=== PATIENT | male | born 1970 | race Caucasian/White ===

== ENCOUNTER 2017-03-28 09:31 | Day surgery (SDC) | payer MEDICARE, OTHER ==
[~2017-03-28 09:31] MED LIST: LAMO150T; LAMO25TA; LORA2TAB7; OXYB10TA; PANT40TA3; QUET1TAB9 PO; QUET5TAB
[2017-03-28 09:59] VITALS: BP 129/91; PULSE 80; RESP 20; TEMP 99.2; O2SAT 94
[2017-03-28 12:00] VITALS: BP 129/91; PULSE 80; RESP 20; TEMP 99.2; O2SAT 94
--- NOTE | 2017-03-28 12:02 | PD.RAD ---
Post Procedure Progress Note Pre Procedure Diagnosis: (1) Communicating hydrocephalus Post Procedure Diagnosis: (1) Communicating hydrocephalus Procedure Date: Mar 28, 2017 Supervising Radiologist: Linus Barrera JR Proceduralist/Assist: Adelaida Viatl RT(R)(CV) Anesthesia: Other Plan of Activity Patient to Unit: [facility] Patient Condition: Good Additional Comments: Shuntogram shows patent shunt. Pooling of contrast in peritoneal component consistent with adhesions. Same appearance as 2015. No leak seen. See PACS Report for procedural detail/treatment Jr. Bruce,Linus De Jesus MD Mar 28, 2017 12:02
--- NOTE | 2017-03-28 16:32 | RADRPT ---
EXAM DATE/TIME: 03/28/2017 11:36 [facility] COMPARISON: SHUNTOGRAM, April 26, 2015, 14:32. SHUNT SERIES, April 26, 2015, 15:25. INDICATIONS : Hydrocephalus.Shunt failure. MEDICAL HISTORY : 1. Hydrocephalus SURGICAL HISTORY : 1. shunt placed and revision ENCOUNTER: Initial ACUITY: 2 days PAIN SCORE: 0/10 FLUORO TIME: 3.2 minutes IMAGE SERIES: 0 CONTRAST: 20 cc Omnipaque (iohexol) 300 PROCEDURE : 1. Fluoroscopically guided shuntogram. The risks, benefits and alternatives to the procedure were explained and verbal and written consent w as obtained. The site was prepped in sterile fashion. Full sterile technique was used, including ca p, mask, sterile gloves and gown and a large sterile sheet. Hand hygiene and 2% chlorhexidine and/or betadine/alcohol prep was utilized per protocol for cutaneous antisepsis. The skin and subcutaneous tissues were infiltrated with local anesthetic solution. With fluoroscopic guidance the previously placed shunt was injected with a 23 gauge butterfly needle and positive contrast was injected. Prior to the injection of contrast fluoroscopic images of the shunt show some progression in the calc ification of the current shunt. An old calcified ligated shunt is unchanged. The existing shunt shows no breakage in the catheter. The peritoneal component is in the same position as it was in 2015 cons istent with adhesion formation. Following injection of contrast images were performed. These show pat ency to the shunt. No extravasation to suggest a leak. Pooling of contrast adjacent to the tip of the catheter within the peritoneal cavity is similar to the prior study and consistent with adhesions. CONCLUSION: The appearance of the [employer] shunt is unchanged from 2015. The shunt is patent but adhesions have locked the catheter in the right lower quadrant as detailed above. No leakage of contrast to suggest a break in the catheter. Linus Barrera Jr., MD on March 28, 2017 at 16:23 Board Certified Radiologist. This report was verified electronically.
== END 2017-03-28 12:30 | disposition home or self-care (01) ==
LOC: HROP 09:31 → HRIP 09:34 → HROP 12:30
PROVIDERS: ATTEND Neurological Surgery
DX: T85.09XA Other mechanical complication of ventricular intracranial (communicating) shunt, initial encounter (principal); G91.0 Communicating hydrocephalus
CPT/HCPCS: 61070; 75809

== ENCOUNTER 2017-07-24 16:26 | Emergency (ER) | payer MEDICARE, OTHER ==
[~2017-07-24] VITALS: Ht 165.1 cm; Wt 68.2 kg
[~2017-07-24 16:26] MED LIST changes: +MACR100C2 PO; -QUET5TAB
[2017-07-24 17:27] VITALS: BP 111/73; PULSE 77; RESP 15; TEMP 98.2; O2SAT 98
[2017-07-24] MEDS ORDERED: CLON0.1T PO (18:15)
--- NOTE | 2017-07-24 18:15 | PD ---
HPI Chief Complaint: Psychiatric Symptoms Time Seen by Provider: 17:15 Travel History International Travel<30 days: No Contact w/Intl Traveler<30days: No Traveled to known affect area: No History of Present Illness HPI 47yo M with PMH of cerebral palsy with chronic right hemiparesis and congenital hydrocephalus s/p OUTSOLE LEVELER shunt was brought in under [place] Act by EVAC from his family medicine physician because of outbursts at the office and inability to take care of himself. Pt denies any fever, chest pain, sob, n/v, abdominal pain , new focal weakness or numbness. Denies any suicidal or homicidal ideations. Denies any visual or auditory hallucinations. PFSH Past Medical History Bipolar Disorder: Yes Cerebral Palsy: Yes Schizophrenia: Yes Tetanus Vaccination: Unknown Past Surgical History Surgical History: Unable to Obtain Neurologic Surgery: Yes (VISIBLE SCAR ON SKULL) Social History Alcohol Use: No Tobacco Use: No Substance Use: No Allergies-Medications (Allergen,Severity, Reaction): Coded Allergies: alcohol (Verified Allergy, Unknown, 07/24/17) Siezures, Reported Meds & Prescriptions Reported Meds & Active Scripts Active Reported Oxybutynin ER 24 HR (Oxybutynin Chloride) 10 Mg Tab 30 Days Quetiapine (Quetiapine Fumarate) 200 Mg Tab 100 Mg PO 30 Days Lorazepam 2 Mg Tab 30 Days Lamotrigine 25 Mg Tab 90 Days Lamotrigine 150 Mg Tab 30 Days Pantoprazole (Pantoprazole Sodium) 40 Mg Tab 90 Days Review of Systems Except as stated in HPI: all other systems reviewed are Neg Physical Exam Narrative GENERAL: 47yo M not in distress. SKIN: Focused skin assessment warm/dry. HEAD: Atraumatic. Normocephalic. EYES: Pupils equal and round at 3mm bilaterally. ENT: No nasal bleeding or discharge. Mucous membranes pink and moist. NECK: Trachea midline. No JVD. CARDIOVASCULAR: Regular rate and rhythm. No murmur appreciated. RESPIRATORY: No accessory muscle use. Clear to auscultation. Breath sounds equal bilaterally. GASTROINTESTINAL: Abdomen soft, non-tender, nondistended. MUSCULOSKELETAL: No obvious deformities. No clubbing. No cyanosis. No edema. NEUROLOGICAL: Awake and alert. No obvious cranial nerve deficits. Motor grossly within normal limits. Normal speech. PSYCHIATRIC: Appropriate mood and affect; insight and judgment normal. Data Data Last Documented VS Vital Signs Date Time Temp Pulse Resp B/P (MAP) Pulse Ox O2 Delivery O2 Flow Rate FiO2 07/24/17 19:34 98.4 65 16 120/66 (84) 98 Room Air Orders Orders Ua Includes Microscopic (07/24/17 18:46) Ed Discharge Order (07/24/17 20:27) Labs Laboratory Tests Test 07/24/17 18:45 Urine Color LIGHT-YELLOW Urine Turbidity CLEAR Urine pH 6.0 Urine Specific [place] 1.004 Urine Protein NEG mg/dL Urine Glucose (UA) NEG mg/dL Urine Ketones NEG mg/dL Urine Occult Blood SMALL Urine Nitrite NEG Urine Bilirubin NEG Urine Urobilinogen LESS THAN 2.0 MG/DL Urine Leukocyte Esterase NEG Urine RBC LESS THAN 1 /hpf MDM Medical Decision Making Medical Screen Exam Complete: Yes Emergency Medical Condition: Yes Differential Diagnosis Baseline cerebral palsy vs. behavioral issue Narrative Course 47yo M with cerebral palsy was erick acted by PMD for outbursts. He is pleasant here and answers all my questions. He follows commands and is awake, alert and oriented. He denies any complaints and denies any suicidal or homicidal ideations. VS stable. He does not want blood work because of the needle. He is calm and cooperative and I do not feel that he needs chemical restraints in order to obtain blood work. Will call his mother for further information. Nurse called mother who said that he has been more upset the last 2 days. He did have some new medications pantoprazole, quetiapine and clonidine that started within the week. He will come to the hospital and I will discuss with her further. UA showed no leukocyte. Pt is appropriate on my exam and I do not feel like further testing is needed. Vital signs normal. Mother is on her way here to pick patient up. Will lift [place] Act as patient is not homicidal or suicidal and do not feel it was appropriately placed. Discussed with both mother and sister and answered all their questions. Return precautions given. Diagnosis Primary Impression: Behavior concern in adult Patient Instructions: General Instructions Departure Forms: Tests/Procedures Additional Instructions: Please follow up with your own psychologist and neurologist for further testing if needed. Return to the ED if you have fever, weakness, numbness or concerning symptoms. Med/Other Pt SpecificInfo: No Change to Meds Disposition: 01 DISCHARGE HOME Condition: Stable MirandaWillow peacockemma [place] Jul 24, 2017 18:15
[2017-07-24 19:34] VITALS: BP 120/66; PULSE 65; RESP 16; TEMP 98.4; O2SAT 98
[2017-07-24 19:36] LABS: BLOOD, URINE SMALL (NEG); GLUCOSE,URINE NEG (NEG); KETONE, URINE NEG (NEG); NITRITE,URINE NEG (NEG); URINE COLOR LIGHT-YELLOW (YELLW/STRAW)
[2017-07-24 21:40] VITALS: BP 122/68
== END 2017-07-24 21:41 | disposition home or self-care (01) ==
LOC: NEDAMB 16:26 → NEPD 21:41
DX: G80.9 Cerebral palsy, unspecified (principal); Z98.2 Presence of cerebrospinal fluid drainage device; Z86.69 Personal history of other diseases of the nervous system and sense organs; F31.9 Bipolar disorder, unspecified; F20.9 Schizophrenia, unspecified
CPT/HCPCS: 81001; 99283